=== PATIENT | female | born 1990 | race Caucasian/White ===

== ENCOUNTER → 2022-11-13 16:00 | Outpatient (CLI) | payer OTHER | END | disposition home or self-care (01) | LOC: NST 16:00 | PROVIDERS: ATTEND Obstetrics & Gynecology | DX: Z34.82 Encounter for supervision of other normal pregnancy, second trimester (principal) ==

== ENCOUNTER 2023-03-08 16:45 | Outpatient (CLI) | payer OTHER ==
[2023-03-08] MEDS ORDERED: PRENATAL TABLE1 EAC1 PO (17:14)
[2023-03-08] MEDS ORDERED: IRON18 MG (17:14)
== END 2023-03-08 20:25 | disposition home or self-care (01) ==
LOC: OBS/DEL 16:45
PROVIDERS: ATTEND Specialist
DX: O26.893 Other specified pregnancy related conditions, third trimester (principal); Z3A.38 38 weeks gestation of pregnancy; R10.2 Pelvic and perineal pain

== ENCOUNTER 2023-03-15 05:06 | Inpatient (IN) | payer OTHER ==
[~2023-03-15] VITALS: Ht 167.6 cm; Wt 3.6 kg
[~2023-03-15 05:06] MED LIST: IRON18 MG; PRENATAL TABLE1 EAC1 PO
[2023-03-17] MEDS ORDERED: IBU800 MG PO (09:34)
[2023-03-17] MEDS ORDERED: SURFAK240 M1 PO (09:34)
== END 2023-03-17 14:19 | disposition home or self-care (01) | DRG 788 ==
LOC: LDR 05:06 → OB/GYN 03-16 00:34
PROVIDERS: ADMIT Specialist; ATTEND Specialist
PROC: 0UB10ZZ Excision of Left Ovary, Open Approach (ICD-10-PCS; 2023-03-15)
PROC: 4A1HXCZ Monitoring of Products of Conception, Cardiac Rate, External Approach (ICD-10-PCS; 2023-03-15)
PROC: 10D00Z1 Extraction of Products of Conception, Low, Open Approach (ICD-10-PCS; principal; 2023-03-15 21:00)
DX: O62.1 Secondary uterine inertia (principal); Z3A.39 39 weeks gestation of pregnancy; Z37.0 Single live birth; Z20.822 Contact with and (suspected) exposure to COVID-19; O34.83 Maternal care for other abnormalities of pelvic organs, third trimester; D27.0 Benign neoplasm of right ovary